=== PATIENT | male | born 1955 | race Caucasian/White ===

== ENCOUNTER → 2016-04-15 | Outpatient (CLI) | payer BC ==
[~2016-04-15] MED LIST: ATV/1 PO; DABRAFENIB PO; DENOINJ IM; IBUP-1450 PO; MEKINIST PO; METO-157 PO; MORP1TAB11 PO; ONDA8TAB6 PO; ONDA8TAB7 PO; OXYC1TAB3 PO; OXYC7.5T65 PO; POTA10CA28 PO; PROC1TAB5 PO; PROM25TA9 PO; PSYL48.59 PO; SERT100T PO; SIMV-151 PO; ZNTT/150 PO; ZOLP10TA PO
--- NOTE | 2016-04-15 16:10 | DIAGNOSTIC IMAGING REPORT ---
CT ABD/PELVIS IV AND ORAL CONT CLINICAL HISTORY: MELANOMA COMPARISON STUDY: 01/07/2016 TECHNIQUE: Following the IV administration of 94 mL of Optiray-320, CT scan of the abdomen and pelvis was performed from the lung bases to the proximal femurs. Images are reviewed in the axial, sagittal, and coronal planes. IV contrast was administered without complication. CT DOSE: FINDINGS: Lower chest: The heart is normal in size and configuration, without pericardial effusion. The lung bases and pleural spaces are clear. Liver: There are innumerable subcentimeter hepatic masses. These are stable to minimally smaller than on the preceding study. Gallbladder: Unremarkable. Spleen: The spleen is enlarged. There are 3 hypodense splenic masses, minimally smaller than on the preceding study. Pancreas: Unremarkable. Adrenal glands: Unremarkable. Kidneys: There is a 11 mm hypodensity in arising from the lower pole of the right kidney likely representing a cyst, although it does slightly exceed water attenuation. There is a 2.5 mm nonobstructing left renal calculus. There is a 1 cm mid pole left renal hypodensity. This slightly exceeds water attenuation and is therefore indeterminate. Bowel: There are no transition zones indicate bowel obstruction. No acute inflammatory changes are evident Peritoneum: There is no intraperitoneal free air or abdominal ascites. Vasculature: The abdominal aorta is normal in course and caliber. Adenopathy: None. Pelvic viscera: The bladder, and pelvic viscera are unremarkable. Skeletal structures: There are scattered osteoblastic lesions. Several these are slightly less apparent on the prior study. IMPRESSION: 1. Innumerable subcentimeter hepatic masses, stable to minimally smaller than the prior study 2. Mild splenomegaly. Splenic masses, minimally smaller than the prior study 3. Scattered osteoblastic lesions, several slightly less apparent than on the prior study 4. Nonobstructing left renal calculus 5. Small bilateral renal hypodensities, possibly representing cysts although slightly exceeding water attenuation 6. Overall the CT scan indicates slight improvement in the patient's metastatic disease Electronically signed by: David Briones M.D. 04/15/2016 4:08 PM Dictated Date/Time: 04/15/2016 3:58 PM
--- NOTE | 2016-04-15 16:13 | DIAGNOSTIC IMAGING REPORT ---
CT SCAN OF THE CHEST WITH IV CONTRAST CLINICAL HISTORY: Metastatic melanoma. COMPARISON STUDY: Chest CT scans dated 01/07/2016 and 05/29/2015. TECHNIQUE: Following the IV administration of 94 cc of Optiray 320, CT scan of the thorax was performed from the thoracic inlet to the upper abdomen. Images are reviewed in the axial, sagittal, and coronal planes. IV contrast was administered without complication. CT DOSE: 998.29 mGycm FINDINGS: Thyroid: Imaged portions of the thyroid gland are normal in size and attenuation. Thoracic aorta: The thoracic aorta is normal in caliber and demonstrates standard 3-vessel arch anatomy. No aneurysm or dissection is seen. Pulmonary vasculature: The pulmonary trunk is normal in caliber. There are no filling defects identified in the central pulmonary vessels to indicate pulmonary embolus. Note that this examination was not protocoled for evaluation of the pulmonary arteries. Heart: The heart is normal in size and configuration, and without pericardial effusion. Lungs and pleural spaces: The trachea and central airways are clear. There is no airspace consolidation or pleural effusion. There are scattered 1 tiny pulmonary nodules. The largest measures 3 mm and is seen in the right middle lobe on image #145. This is unchanged from 05/29/2015. No new pulmonary nodules are identified. Mediastinum: There is no mediastinal lymphadenopathy. Luz Maria: Clear. Axillae: There is no axillary lymphadenopathy. Postoperative changes noted in the left axilla. Upper abdomen: There are too numerous to count hepatic metastases measuring less than 2 cm. These are overall similar appearance to the 01/07/2016 examination. Low-attenuation splenic lesions are also unchanged. See report of abdominal CT performed concurrently for detailed intra-abdominal findings. Skeletal structures: Multiple lytic and blastic osseous lesions are again seen. Several of the previously identified sclerotic lesions are less apparent from previous (specifically lesions in the bodies of T5, T6, and T7). Small lesions are also seen in the manubrium of the sternum and the left first rib. No new bony lesions are clearly identified. IMPRESSION: 1. There is no evidence of progressive metastatic disease. 2. Scattered tiny pulmonary nodules measure up to 3 mm are unchanged. No new or enlarging pulmonary nodules are identified. 3. Mixed lytic and blastic bony lesions are identified. Several of the sclerotic lesions are less apparent than on the 01/07/2016 examination. This may represent positive response. 4. Multifocal hepatic metastatic disease as well as splenic metastatic disease is likely unchanged. See report of abdominal CT scan performed concurrently for detailed intra-abdominal findings. 5. There is no airspace consolidation or pleural effusion. 6. Additional findings as above. Electronically signed by: Sukhjinder Dasilva M.D. 04/15/2016 4:11 PM Dictated Date/Time: 04/15/2016 3:55 PM
== END | disposition home or self-care (01) ==
LOC: C.CTS 15:04
PROVIDERS: ATTEND Internal Medicine Hematology & Oncology
DX: C43.59 Malignant melanoma of other part of trunk (principal); R16.0 Hepatomegaly, not elsewhere classified; N20.0 Calculus of kidney

== ENCOUNTER → 2016-06-03 | Outpatient (CLI) | payer BC ==
[~2016-06-03] MED LIST changes: +OPTIRAY 320 IV PRN; -OXYC1TAB3 PO
--- NOTE | 2016-06-03 09:04 | DIAGNOSTIC IMAGING REPORT ---
CT OF THE CHEST WITH IV CONTRAST CLINICAL HISTORY: Melanoma COMPARISON STUDY: 04/15/2016 TECHNIQUE: Following the IV administration of 118 mL of Optiray-320, CT of the thorax was performed from the thoracic inlet to the lung bases. Images are reviewed in the axial, sagittal, and coronal planes. IV contrast was administered without complication. CT DOSE: 974.97 mGy.cm FINDINGS: Thyroid: Imaged portions of the thyroid gland are normal in appearance. Thoracic aorta: The thoracic aorta is normal in course and caliber, noting standard 3-vessel arch anatomy. No aneurysm or dissection is seen. Pulmonary vasculature: The pulmonary trunk is normal in caliber. There are no central filling defects identified to suggest pulmonary embolus. Note that this examination was not protocoled for the evaluation of pulmonary emboli. HEART: The heart is normal in size and configuration, without pericardial effusion. Lungs and pleural spaces: There is a new 2 mm left lower lobe pulmonary nodule as visualized on image #[id number]. There is a new 2 mm left lower lobe pulmonary nodule in image #132/351. There is a stable 2 mm right middle lobe pulmonary nodule. There is a new 3 mm right middle lobe pulmonary nodule on image #152/351. A few scattered additional tiny pulmonary nodules were present on the prior study. Mediastinum: There is no mediastinal lymphadenopathy. Luz Maria: Clear. Axilla: Clear. Upper abdomen: There are multiple hepatic and splenic nodules. Skeletal structures: There are scattered lytic and sclerotic skeletal lesions. IMPRESSION: 1. Multiple hepatic and splenic nodules, consistent with metastatic disease 2. Multiple scattered pulmonary nodules, at least 3 of which are new. The findings are suggestive of progressive pulmonary metastasis. Electronically signed by: David Briones M.D. 06/03/2016 9:03 AM Dictated Date/Time: 06/03/2016 8:51 AM
--- NOTE | 2016-06-03 09:07 | DIAGNOSTIC IMAGING REPORT ---
ABDOMEN AND PELVIS CT WITH IV AND ORAL CONTRAST CT DOSE: HISTORY: Melanoma 05/17/16 1446 CREAK 0.99 TECHNIQUE: Multiaxial CT images of the abdomen and pelvis were performed following the use of intravenous and oral contrast. COMPARISON STUDY: 04/15/2006 FINDINGS: Similar exam compared to prior. Lung bases are clear. Hypodensities involving the liver and spleen are stable. No new or progressive lesions. Kidneys show mild cortical scarring. There is a small cyst of the lower pole right kidney unchanged. Bowel pattern is nonobstructive. No significant adenopathy within the abdomen and pelvic or inguinal regions. Hepatic blastic metastatic change stable. IMPRESSION: 1. No change in the study compared to the prior exam. 2. The metastatic changes described previously are unaltered Electronically signed by: Efren Estevez M.D. 06/03/2016 9:06 AM Dictated Date/Time: 06/03/2016 8:53 AM
== END | disposition home or self-care (01) ==
LOC: C.CTS 08:23
PROVIDERS: ATTEND Internal Medicine Hematology & Oncology
DX: C43.59 Malignant melanoma of other part of trunk (principal); D73.89 Other diseases of spleen; K76.89 Other specified diseases of liver; R91.8 Other nonspecific abnormal finding of lung field

== ENCOUNTER → 2016-09-21 | Outpatient (CLI) | payer BC ==
--- NOTE | 2016-09-21 09:53 | DIAGNOSTIC IMAGING REPORT ---
CHEST CT WITH CONTRAST CT DOSE: HISTORY: Melanoma CT TECHNIQUE: Multiaxial CT images of the chest were performed following the intravenous administration of contrast. COMPARISON: 06/03/2016 FINDINGS: Small additional 2 mm nodule right lower lobe adjacent to the major fissure transaxial image 178. All additional micronodules are stable. No significant mediastinal or hilar adenopathy. Pulmonary vasculature enhances appropriately. Findings of hepatic metastatic disease again noted. IMPRESSION: 1. Single additional 2 mm nodular density right lower lobe. 2. All additional findings are unchanged from the prior exam. Electronically signed by: Efren Estevez M.D. 09/21/2016 9:52 AM Dictated Date/Time: 09/21/2016 9:42 AM
--- NOTE | 2016-09-21 09:53 | DIAGNOSTIC IMAGING REPORT ---
CT ABD/PELVIS IV AND ORAL CONT CLINICAL HISTORY: Melanoma COMPARISON STUDY: 06-18 TECHNIQUE: Following the IV administration of 92 mL of Optiray-320, CT scan of the abdomen and pelvis was performed from the lung bases to the proximal femurs. Images are reviewed in the axial, sagittal, and coronal planes. IV contrast was administered without complication. CT DOSE: 596.19 mGy.cm FINDINGS: Lower chest: The heart is normal in size and configuration, without pericardial effusion. The lung bases and pleural spaces are clear. Liver: There are innumerable subcentimeter hepatic hypodense lesions, similar to the preceding examination. Gallbladder: Unremarkable. Spleen: Splenic hypodense lesions remain unchanged. The largest measures 14 mm. Pancreas: Unremarkable. Adrenal glands: Unremarkable. Kidneys: There is stable 11 mm left renal hypodensity likely representing a cyst. There is a stable 1 cm lower pole right renal hypodensity also likely representing a cyst. There is no hydronephrosis. There is a 3 mm left renal calculus. Bowel: There are no transition zones indicate bowel obstruction. No acute inflammatory changes are visualized. Peritoneum: There is no intraperitoneal free air or abdominal ascites. Vasculature: The abdominal aorta is normal in course and caliber. Adenopathy: None. Pelvic viscera: The bladder, and pelvic viscera are unremarkable. Skeletal structures: There is an enlarging lytic destructive lesion involving the right ischium measuring 3 cm. There is a 29 mm L3 lytic lesion with associated pathologic fracture. There is an 11 mm L1 lytic focus. IMPRESSION: 1. Multiple hepatic and splenic hypodense lesions, consistent with metastatic disease and relatively similar to the preceding study 2. Progressive skeletal metastasis with a 3 cm destructive right ischial lesion, a 29 mm L3 lytic lesion with associated pathologic fracture, and an 11 mm L1 lytic focus. Electronically signed by: David Briones M.D. 09/21/2016 9:51 AM Dictated Date/Time: 09/21/2016 9:41 AM
== END | disposition home or self-care (01) ==
LOC: C.CTS 09:16
PROVIDERS: ATTEND Internal Medicine Hematology & Oncology
DX: C43.59 Malignant melanoma of other part of trunk (principal); C78.7 Secondary malignant neoplasm of liver and intrahepatic bile duct; C79.51 Secondary malignant neoplasm of bone

== ENCOUNTER → 2016-10-11 | Outpatient (CLI) | payer BC ==
[~2016-10-11] MED LIST changes: -DABRAFENIB PO; -IBUP-1450 PO; -MEKINIST PO; -ONDA8TAB7 PO; -PROC1TAB5 PO
--- NOTE | 2016-10-11 18:04 | DIAGNOSTIC IMAGING REPORT ---
CT CERVICAL SPINE WITH CT DOSE: 487.28 mGycm CLINICAL HISTORY: MELANOMA TECHNIQUE: The patient was scanned in a dynamic helical fashion following administration of 93 cc of Optiray 320. COMPARISON STUDY: None. FINDINGS: There is mild mucosal thickening within the sphenoid sinus. No acute fractures or subluxations are visualized within the cervical spine. There is no evidence of pathologic adenopathy within the visualized portions of the soft tissue neck. No pathologic neck masses are visualized. The lung apices are unremarkable in appearance. There are multilevel degenerative changes most pronounced at the C56 and C6-7 levels. There are ill-defined lytic foci involving the right C7 lateral mass, and lamina. The findings are viewed as suspicious for metastatic disease. There is a 12 mm lytic focus involving the C2 spinous process, consistent with metastatic disease. There is minimal epidural extension. Evaluation of the spinal cord and canal would be better assessed with an MRI study. IMPRESSION: 1. Lytic foci involving the right C7 lateral mass and lamina consistent with metastatic disease 2. 12 lytic lytic focus involving the C2 spinous process with minimal epidural extension. The findings are consistent with a metastatic deposit. Electronically signed by: David Briones M.D. 10/11/2016 6:03 PM Dictated Date/Time: 10/11/2016 5:51 PM
== END | disposition home or self-care (01) ==
LOC: C.MRI 17:23
PROVIDERS: ATTEND Physician Assistant Medical
DX: M54.2 Cervicalgia (principal); C43.59 Malignant melanoma of other part of trunk

== ENCOUNTER 2016-10-31 13:12 | Emergency (ER) | payer BC ==
[~2016-10-31] VITALS: Ht 180.3 cm; Wt 77.5 kg
[~2016-10-31 13:12] MED LIST changes: -ATV/1 PO; -OPTIRAY 320 IV PRN; -PROM25TA9 PO
[2016-10-31 13:22] VITALS: TEMP 36.8; Ht 180.3 cm; Wt 77.5 kg
[2016-10-31] MEDS ORDERED: SODIUM CHLORIDE 0.9% 1000ML 2,000 ML IV STA (13:26)
[2016-10-31] MEDS ORDERED: SODIUM CHLORIDE 0.9% 1000ML 1,000 ML IV STA (13:26)
[2016-10-31 13:37] VITALS: O2SAT 99
[2016-10-31] MEDS ORDERED: PROMETHAZINE HCL INJ 25 MG in SODIUM CHLORIDE 0.9% 50ML 50 ML IV STA (13:40)
[2016-10-31 13:57] LABS: URINE APPEARANCE CLEAR (CLEAR); URINE BILIRUBIN NEG (NEG); URINE COLOR YELLOW; URINE NITRITE NEG (NEG); URINE PH 7.5 (4.5-7.5); URINE SPECIFIC GRAVITY 1.018 (1.000-1.030); UROBILINOGEN NEG (NEG); ZZUR CULT IF INDIC CLEAN CATCH NO
[2016-10-31 14:00] LABS: MANUAL MICROSCOPIC REQUIRED? NO; REVIEW REQ? NO
[2016-10-31 14:20] LABS: BASO % 0.4 %; BASO ABS # 0.02 K/uL (0-0.2); COMPLETE YES; HEMATOCRIT 41.4 % (42-52); IG% 0.4 %; LYMPH % 8.5 %; LYMPH ABS # 0.48 K/uL (1.2-3.4); MEAN CORPUSCULAR HEMOGLOBIN 28.2 pg (25-34); MEAN CORPUSCULAR HGB CONC 35.7 g/dl (32-36); MEAN PLATELET VOLUME 8.4 fL (7.4-10.4); MONO % 7.6 %; NEUT % 75.1 %; PLATELET COUNT 219 K/uL (130-400); RED BLOOD COUNT 5.24 M/uL (4.7-6.1); WHITE BLOOD COUNT 5.63 K/uL (4.8-10.8)
--- NOTE | 2016-10-31 14:28 | DIAGNOSTIC IMAGING REPORT ---
CHEST ONE VIEW PORTABLE CLINICAL HISTORY: productive cough nausea COMPARISON STUDY: 10/31/2015 FINDINGS: The bones soft tissues and hemidiaphragms are normal. The cardiomediastinal silhouette is normal. The lungs are clear. The pulmonary vasculature is normal. IMPRESSION: Negative chest. The above report was generated using voice recognition software. It may contain grammatical, syntax or spelling errors. Electronically signed by: Efren Estevez M.D. 10/31/2016 2:26 PM Dictated Date/Time: 10/31/2016 2:26 PM
[2016-10-31 14:39] LABS: CALCIUM 8.7 mg/dl (8.5-10.1); CREATININE 0.92 mg/dl (0.60-1.40); POTASSIUM 3.7 mmol/L (3.5-5.1)
[2016-10-31] MEDS ORDERED: LORAZEPAM 2 MG/ML 1 ML VIAL IV STA (15:17)
[2016-10-31 17:09] VITALS: BP 114/74; PULSE 74; O2SAT 94
[2016-10-31] MEDS ORDERED: PROM25TA9 PO (17:23)
[2016-10-31] MEDS ORDERED: ATV/1 PO (17:23)
[2016-10-31] MEDS ORDERED: ATIVAN 1MG HOMEPACK PO ONE (17:30)
[2016-10-31] MEDS ORDERED: PHENERGAN 25MG HOMEPACK PO ONE (17:30)
--- NOTE | 2016-10-31 20:38 | EMERGENCY ROOM VISIT NOTE ---
History Report prepared by Malickibnoel: Bridgett Pham Under the Supervision of: Dr. Ulices Chow M.D. First contact with patient: 13:26 Chief Complaint: DEHYDRATION Stated Complaint: DEHYDRATED FROM CHEMO/RAD, VOMITING, NAUSEA Nursing Triage Summary: Pt c/o throwing up, nauseous since radiation treatment started a few weeks ago (group of 10 finished Tuesday). Pt states he coughed up blood. Melanoma History of Present Illness The patient is a 61 year old male who presents to the Emergency Room with complaints of worsening dehydration for the past 5 days. He finished 10 doses of radiation and chemotherapy last week for a history of metastatic melanoma. The patient also started a new chemo medication and received an X-Geva injection last week. Since then, he has been nauseous and vomiting every day. He has not been able to control his nausea with Compazine. The patient states he experienced one episode of hemoptysis this past week as well as a sore throat and one episode of diarrhea. He feels minimally lightheaded here in the ED. His states she called his radiation oncologist's office, Dr. Villa with [facility], this morning and was referred to the ED for further evaluation and management. The patient denies LOC, headache, fevers, chills, diaphoresis, visual changes, neck pain, chest pain, breathing difficulties, abdominal pain, back pain, melena, hematochezia, urinary symptoms, numbness, weakness, lymphadenopathy, rash, or other complaints. 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 A total of ten systems were reviewed and were otherwise negative. Past Medical & Surgical Medical Problems: (1) Melanoma Social History Smoking Status: Never Smoker Smokeless Tobacco Use: No Alcohol Use: occasionally Drug Use: none Marital Status: Housing Status: lives with family Occupation Status: retired Current/Historical Medications Scheduled Denosumab (Xgeva), 1 APPLN IM [id number] Metoclopramide (Reglan), 10 MG PO ACHS Potassium Chloride (Micro-K Ext Rel), 10 MEQ PO DAILY Psyllium (Metamucil), 1 TSP PO DAILY Ranitidine (Zantac), 1 TAB PO BID Sertraline Hcl (Zoloft), 150 MG PO DAILY Simvastatin (Simvastatin), 1 TAB PO DAILY Scheduled PRN Lorazepam (Ativan), 1 MG PO Q6H PRN for Nausea or Vomiting Morphine Sulfate (Morphine Sulfate Er), 1 TAB PO BID PRN for Pain Ondansetron Hcl (Zofran), 8 MG PO Q6 PRN for Nausea Oxycodone/Acetaminophen 7.5MG/325MG (Percocet 7.5MG/325MG), 1 TAB PO Q6 PRN for Pain Promethazine Hcl (Phenergan), 25 MG PO Q6H PRN for Nausea Zolpidem Tartrate (Ambien), 10 MG PO HS PRN for Sleep Allergies Coded Allergies: Penicillins (Verified Allergy, Intermediate, MOUTH SORES, 10/31/15) Physical Exam Vital Signs Date Time Temp Pulse Resp B/P (MAP) Pulse Ox O2 Delivery O2 Flow Rate FiO2 10/31/16 17:09 74 18 114/74 94 Room Air 10/31/16 14:27 74 24 99 10/31/16 14:12 75 20 99 10/31/16 14:10 118/84 10/31/16 13:57 67 18 100 10/31/16 13:42 70 14 100 10/31/16 13:38 70 10/31/16 13:37 99 Room Air 10/31/16 13:36 124/87 10/31/16 13:22 36.8 94 18 116/82 99 Room Air Physical Exam GENERAL: Patient is awake, alert, tired-appearing, in no distress HENT: Normocephalic, atraumatic. Oropharynx unremarkable. Dry mucous membranes. EYES: Normal conjunctiva. Sclera non-icteric. NECK: Supple. No nuchal rigidity. FROM. No JVD. RESPIRATORY: Clear to auscultation. CARDIAC: Regular rate, normal rhythm. Extremities warm and well perfused. Pulses equal. ABDOMEN: Soft, non-distended. No tenderness to palpation. No rebound or guarding. No masses. RECTAL: Deferred. MUSCULOSKELETAL: Chest examination reveals no tenderness. The back is symmetrical on inspection without obvious abnormality. There is no CVA tenderness to palpation. No joint edema. LOWER EXTREMITIES: Calves are equal size bilaterally and non-tender. No edema. No discoloration. NEURO: Normal sensorium. No sensory or motor deficits noted. SKIN: No rash or jaundice noted. Medical Decision & Procedures ER Provider Diagnostic Interpretation: Radiology results as stated below per my review and radiologist interpretation: CHEST ONE VIEW PORTABLE CLINICAL HISTORY: productive cough nausea COMPARISON STUDY: 10/31/2015 FINDINGS: The bones soft tissues and hemidiaphragms are normal. The cardiomediastinal silhouette is normal. The lungs are clear. The pulmonary vasculature is normal. IMPRESSION: Negative chest. The above report was generated using voice recognition software. It may contain grammatical, syntax or spelling errors. Electronically signed by: Efren Estevez M.D. 10/31/2016 2:26 PM Laboratory Results 10/31/16 14:05 Red Blood Count 5.24, Mean Corpuscular Volume 79.0, Mean Corpuscular Hemoglobin 28.2, Mean Corpuscular Hemoglobin Concent 35.7, Mean Platelet Volume 8.4, Neutrophils (%) (Auto) 75.1, Lymphocytes (%) (Auto) 8.5, Monocytes (%) (Auto) 7.6, Eosinophils (%) (Auto) 8.0, Basophils (%) (Auto) 0.4, Neutrophils # (Auto) 4.23, Lymphocytes # (Auto) 0.48, Monocytes # (Auto) 0.43, Eosinophils # (Auto) 0.45, Basophils # (Auto) 0.02 10/31/16 14:05 Test 10/31/16 13:40 10/31/16 14:05 Urine Color YELLOW Urine Appearance CLEAR (CLEAR) Urine pH 7.5 (4.5-7.5) Urine Specific [place] 1.018 (1.000-1.030) Urine Protein NEG (NEG) Urine Glucose (UA) NEG (NEG) Urine Ketones NEG (NEG) Urine Occult Blood NEG (NEG) Urine Nitrite NEG (NEG) Urine Bilirubin NEG (NEG) Urine Urobilinogen NEG (NEG) Urine Leukocyte Esterase NEG (NEG) White Blood Count 5.63 K/uL (4.8-10.8) Red Blood Count 5.24 M/uL (4.7-6.1) Hemoglobin 14.8 g/dL (14.0-18.0) Hematocrit 41.4 % (42-52) Mean Corpuscular Volume 79.0 fL (80-100) Mean Corpuscular Hemoglobin 28.2 pg (25-34) Mean Corpuscular Hemoglobin Concent 35.7 g/dl (32-36) Platelet Count 219 K/uL (130-400) Mean Platelet Volume 8.4 fL (7.4-10.4) Neutrophils (%) (Auto) 75.1 % Lymphocytes (%) (Auto) 8.5 % Monocytes (%) (Auto) 7.6 % Eosinophils (%) (Auto) 8.0 % Basophils (%) (Auto) 0.4 % Neutrophils # (Auto) 4.23 K/uL (1.4-6.5) Lymphocytes # (Auto) 0.48 K/uL (1.2-3.4) Monocytes # (Auto) 0.43 K/uL (0.11-0.59) Eosinophils # (Auto) 0.45 K/uL (0-0.5) Basophils # (Auto) 0.02 K/uL (0-0.2) RDW Standard Deviation 40.2 fL (36.4-46.3) RDW Coefficient of Variation 14.1 % (11.5-14.5) Immature Granulocyte % (Auto) 0.4 % Immature Granulocyte # (Auto) 0.02 K/uL (0.00-0.02) Anion Gap 8.0 mmol/L (3-11) Est Creatinine Clear Calc Drug Dose 92.0 ml/min Estimated GFR () 105.1 Estimated GFR (Non- 90.7 BUN/Creatinine Ratio 10.0 (10-20) Calcium Level 8.7 mg/dl (8.5-10.1) Total Bilirubin 0.7 mg/dl (0.2-1) Direct Bilirubin 0.2 mg/dl (0-0.2) Aspartate Amino Transf (AST/SGOT) 8 U/L (15-37) Alanine Aminotransferase (ALT/SGPT) 20 U/L (12-78) Alkaline Phosphatase 82 U/L (45-117) Total Protein 6.9 gm/dl (6.4-8.2) Albumin 3.9 gm/dl (3.4-5.0) Lipase 109 U/L (73-393) Laboratory results reviewed by me Medications Administered Medications (Trade) Dose Ordered Sig/Patrick Route Start Time Stop Time Status Last Admin Dose Admin Sodium Chloride 2,000 ml @ 999 mls/hr Q2H1M STAT IV 10/31/16 13:26 10/31/16 15:26 DC 10/31/16 14:16 999 MLS/HR Promethazine HCl 25 mg/Sodium Chloride 51 ml @ 204 mls/hr NOW STAT IV 10/31/16 13:40 10/31/16 13:54 DC 10/31/16 14:16 204 MLS/HR Lorazepam (Ativan Inj) 1 mg NOW STAT IV 10/31/16 15:17 10/31/16 15:18 DC 10/31/16 15:22 1 MG Lorazepam (Ativan 1MG Home Pack) 1 homepack UD ONCE PO 10/31/16 17:30 10/31/16 17:31 DC 10/31/16 17:24 1 HOMEPACK Promethazine HCl (Phenergan 25MG Home Pack) 1 homepack UD ONCE PO 10/31/16 17:30 10/31/16 17:31 DC 10/31/16 17:24 1 HOMEPACK ED Course 1337: The patient was evaluated in room C9. A complete history and physical exam was performed. 1326: NSS 2000 ml @ 999 mls/hr IV, NSS 1000 ml @ 125 mls/hr IV. 1340: Promethazine HCl 25 mg/NSS 51 ml @ 204 mls/hr IV. 1450: I reevaluated the patient. He is still nauseous after receiving the Phenergan. I will try administering Ativan. 1517: Ativan 1 mg IV. 1539: I reevaluated the patient. He is feeling a little better. 1608: I reevaluated the patient. He is resting comfortably. 1715: I reevaluated the patient. He is feeling much better with the combination of Phenergan/Ativan. I discussed his discharge instructions and he verbalized complete understanding and agreement. 1730: Phenergan 25 mg 1 homepack PO, Lorazepam 1 mg 1 homepack PO. Medical Decision Triage Nursing notes reviewed. The patient's presentation and history were concerning for nausea and chemotherapy. Etiologies such as medication side effect, effects of chemo/radiation, gastroenteritis, food borne illness, infections, obstruction, pancreatitis, appendicitis, diverticulitis, inflammatory bowel disease, GI bleed, biliary pathology, toxicologic as well as others were entertained. THe patient was hydrated. Labs were normal. He had no relief from phenergan. IV ativan was tried. On reassessment the patient was feeling better. He felt that the combination of the Phenergan and Ativan worked relatively well. After hydration and oral challenge I reviewed the issue. He will need close follow- up with oncology. The patient will be given a prescription for Phenergan and Ativan. He'll rest and hydrate. Driving instructions and working restrictions were discussed given the Phenergan and Ativan. I gave my usual and customary discussion regarding this issue. By the evaluation outlined above other emergent etiologies such as those listed in the differential, as well as others, were deemed relatively unlikely. The patient was educated about the findings as listed above. All questions were answered and the patient was pleased with the treatment. Return instructions were outlined and the patient was discharged in stable condition. The patient was referred to oncology for follow-up for a recheck of the current condition. Medication Reconcilliation Current Medication List: was personally reviewed by me Blood Pressure Screening Patient's blood pressure: Normal blood pressure Blood pressure disposition: Did not require urgent referral Impression Primary Impression: Nausea Additional Impression: Dehydration Scribe Attestation The scribe's documentation has been prepared under my direction and personally reviewed by me in its entirety. I confirm that the note above accurately reflects all work, treatment, procedures, and medical decision making performed by me. Departure Information Dispostion Home / Self-Care Prescriptions Promethazine Hcl (Phenergan) 25 Mg Tab 25 MG PO Q6H Y for Nausea, #10 TAB Prov: Ulices Chow MD 10/31/16 Lorazepam (ATIVAN) 1 Mg Tab 1 MG PO Q6H Y for Nausea or Vomiting, #15 TAB Prov: Ulices Chow MD 10/31/16 Referrals No Doctor, Assigned (PCP) Patient Instructions My [facility] Additional Instructions VOMITING INSTRUCTIONS: DO NOT drive, drink alcohol, operate machinery, or perform dangerous activities today. You were given medications in the ER that can affect your ability to safely function or operate a vehicle. Phenergan(promethazine) tablets 25mg: Take one every six hours as needed for nausea. Avoid alcohol, operating machinery or dangerous equipment, working on ladders or roofs, DRIVING, or situations where being under the influence may be dangerous. Ativan 1mg: Take one every 6 hours as needed for severe nausea. Do not drive if taking. May cause drowsiness. Do not take if you are at work or doing any activity where being under the influence may be dangerous. Continue your Zofran(odansetron): Take one and allow it to dissolve in your mouth every four to six hours as needed for nausea or vomiting. Acetaminophen(Tylenol) may be used for fever or pain. Use 1000mg every six hours as needed. Avoid using more than 4000mg in a 24 hour period. Rest and drink plenty of fluids as tolerated. Slow sips of water or sports drinks are recommended instead of large amounts all at once. Continue current medications. Once your stomach is settled start with a clear liquid diet (jello, soup broth, etc.) and then advance as tolerated. You should avoid full, heavy meals for about 24 hrs from the time your symptoms resolved. Return to the ER for persistent vomiting, fevers, abdominal pain, chest pains, difficulty breathing, black or bloody stools, worsening of your condition, or as needed. Follow up with your oncologist tomorrow for a recheck of your current condition Problem Qualifiers
== END 2016-10-31 17:35 | disposition home or self-care (01) ==
LOC: C.EDB 13:13 → C.EDC 17:35
DX: R11.0 Nausea (principal); E86.0 Dehydration; C43.9 Malignant melanoma of skin, unspecified

== ENCOUNTER → 2016-12-01 | Outpatient (CLI) | payer BC ==
[~2016-12-01] MED LIST changes: +PROM25TA9 PO
[2016-12-01 12:40] VITALS: BP 115/78; PULSE 92; TEMP 37; O2SAT 98
--- NOTE | 2016-12-01 13:43 | Radiation Oncology Follow-Up ---
Radiation Oncology Follow-Up Date of Visit Dec 01, 2016. Reason For Visit One-month follow-up Radiation Completion Date 10/27/16 Diagnosis (1) Melanoma Status: Chronic Onset Date: ~ 09/2014 Stage: IV Permanent Comment: DIAGNOSIS: Skin, back, melanoma, T2N3M0, stage IIIC with left axillary nicole involvement Multiple regimens of chemotherapy have been tried Now with progression with metastasis to the cervical spine, lumbar spine, and the right ischial tuberosity Status post completion of radiation therapy to the cervical spine, lumbar spine , and right pelvis completed 10/27/2016. He received 3000 cGy to each area. Last Edited By: Leda Varghese on Nov 15, 2016 15:31 History of Present Illness Mr. Sweet is a 61-year-old gentleman who noticed a change in a mole on his back that is been there for the last 10 years. He was referred by his primary care physician to Dr. Patel who performed a excisional biopsy on 09/06/2014 and the pathology was eventually reviewed at the [facility] and the final report came back as malignant melanoma, superficial spreading type, Hernandez's level IV, breast low depth 1.7 mm in the vertical growth phase. Dr. Patel took the patient to the OR on 11/15/2014 and performed a wide local excision and sentinel lymph node biopsy. Pathology revealed no residual melanoma at the primary site. The right sentinel lymph nodes were all negative, 0/3. 1 out of 2 sentinel lymph nodes in the left axilla was positive for malignant melanoma. The specimen was sent for analysis in came back positive for BRAF mutation. The patient had a PET/CT scan completed on 11/25/2014 which showed no evidence of metastatic disease and only some focused FDG uptake at the postsurgical site. Dr. Patel brought the patient back to the OR on 01/17/2015 for a left completion axillary lymph node dissection which revealed metastatic melanoma in 5/[address] Patel noted that during his operation there was diffuse in-transit metastases between lymph nodes which may have been confused extranodal extension on pathologic evaluation. The patient was referred to Dr. Villa who was started the patient on interferon therapy. We are now seeing the patient in consultation regarding the role of adjuvant radiation therapy. The patient went on to have multiple regimens of chemotherapy. He was on interferon which cause neutropenia. He was then onYervoy he was given 4 cycles of treatment. He had progression and was then changed to Opdiovo. This unfortunately caused renal failure. He was hospitalized. He had full recovery with normal renal function following that hospitalization. He was then on a BRAF inhibitor and MEK Inhibitor. This was poorly tolerated and cause joint pain and fever. He was then on the BRAF inhibitor alone. This caused a uveitis. This medication was then stopped. He has seen for some new lesions noted of the axilla. He had restaging studies . IMPRESSION: 1. Multiple hepatic and splenic hypodense lesions, consistent with metastatic disease and relatively similar to the preceding study 2. Progressive skeletal metastasis with a 3 cm destructive right ischial lesion, a 29 mm L3 lytic lesion with associated pathologic fracture, and an 11 mm L1 lytic focus. He rates his pain at a level VII. He is taking oxycodone and morphine. He takes neither on a regular basis. He is also having pain on the left mid neck area. An MRI was ordered of the cervical spine this showed lytic lesions. Decision was to treat the cervical spine, lumbar spine, And right pelvis. He received 3000 cGy to each area. This was completed 2016. Interim History He has been doing well over this past month. One week following treatment he was able to discontinue the MS Contin. He now describes minimal discomfort. He gives no a level II. This is is and each of the areas that were treated. He did not develop any skin irritation. He does have some issues with diarrhea. This usually occurs once per day. He also started Keytruda and feels that this may be related to the medication. He had a sore throat at the end of treatment. This also resolved and has not recurred. He had a small amount of trace hemoptysis when his throat was sore and this resolved. Allergies Coded Allergies: Penicillins (Verified Allergy, Intermediate, MOUTH SORES, 10/31/15) Home Medications Scheduled Denosumab (Xgeva), 1 APPLN IM [id number] Metoclopramide (Reglan), 10 MG PO ACHS Potassium Chloride (Micro-K Ext Rel), 10 MEQ PO DAILY Psyllium (Metamucil), 1 TSP PO DAILY Ranitidine (Zantac), 1 TAB PO BID Sertraline Hcl (Zoloft), 150 MG PO DAILY Simvastatin (Simvastatin), 1 TAB PO DAILY Scheduled PRN Morphine Sulfate (Morphine Sulfate Er), 1 TAB PO BID PRN for Pain Ondansetron Hcl (Zofran), 8 MG PO Q6 PRN for Nausea Oxycodone/Acetaminophen 7.5MG/325MG (Percocet 7.5MG/325MG), 1 TAB PO Q6 PRN for Pain Promethazine Hcl (Phenergan), 25 MG PO Q6H PRN for Nausea Zolpidem Tartrate (Ambien), 10 MG PO HS PRN for Sleep Review of Systems Gastrointestinal: Symptoms: Nausea, Vomiting GI Comments: last vomiting two days ago Oral: Symptoms: No Problems Respiratory: Symptoms: WNL, SOB At Rest Urinary: Symptoms: WNL Skin: Symptoms: No Problems Physical Exam Vital Signs Date Time Temp Pulse Resp B/P (MAP) Pulse Ox O2 Delivery O2 Flow Rate FiO2 12/01/16 12:40 37.0 92 18 115/78 98 Pain: Pain Duration: since August Patient Pain Scale: 0 - 10 Initial Pain Intensity: 2.0 Pain Description: Tightness Fatigue: None General Appearance: no apparent distress Eyes: normal inspection, EOMI ENT: normal ENT inspection, hearing grossly normal Neck: no adenopathy, thyroid normal Respiratory/Chest: lungs clear, no respiratory distress, no accessory muscle use Cardiovascular: regular rate, rhythm, no gallop, no murmur Abdomen: non tender, soft, no organomegaly Extremities: no pedal edema, + pertinent finding (good strength and coordination of upper and lower extremities.) Neurologic/Psychiatric: no motor/sensory deficits, alert, normal mood/affect Skin: warm/dry Lymphatic: no adenopathy Additional Exam Notes: There is no tenderness of the paraspinous musculature or spinal processes of the cervical spine or lumbar spine. Laboratory Studies Test 10/14/16 09:25 10/22/16 18:34 10/31/16 14:05 11/04/16 08:52 Urine WBC (Auto) 1-5 /hpf (0-5) Urine RBC (Auto) 0-4 /hpf (0-4) Urine Hyaline Casts (Auto) 1-5 /lpf (0-5) Urine Epithelial Cells (Auto) 0-5 /lpf (0-5) Urine Bacteria (Auto) NEG (NEG) Magnesium Level 2.3 mg/dl (1.8-2.4) 2.3 mg/dl (1.8-2.4) Direct Bilirubin 0.2 mg/dl (0-0.2) Lipase 109 U/L (73-393) White Blood Count 4.34 K/uL (4.8-10.8) Red Blood Count 5.02 M/uL (4.7-6.1) Hemoglobin 14.3 g/dL (14.0-18.0) Hematocrit 40.8 % (42-52) Mean Corpuscular Volume 81.3 fL (80-100) Mean Corpuscular Hemoglobin 28.5 pg (25-34) Mean Corpuscular Hemoglobin Concent 35.0 g/dl (32-36) Platelet Count 169 K/uL (130-400) Mean Platelet Volume 8.4 fL (7.4-10.4) Neutrophils (%) (Auto) 69.9 % Lymphocytes (%) (Auto) 10.8 % Monocytes (%) (Auto) 7.1 % Eosinophils (%) (Auto) 10.8 % Basophils (%) (Auto) 1.2 % Neutrophils # (Auto) 3.03 K/uL (1.4-6.5) Lymphocytes # (Auto) 0.47 K/uL (1.2-3.4) Monocytes # (Auto) 0.31 K/uL (0.11-0.59) Eosinophils # (Auto) 0.47 K/uL (0-0.5) Basophils # (Auto) 0.05 K/uL (0-0.2) RDW Standard Deviation 42.3 fL (36.4-46.3) RDW Coefficient of Variation 14.4 % (11.5-14.5) Immature Granulocyte % (Auto) 0.2 % Immature Granulocyte # (Auto) 0.01 K/uL (0.00-0.02) Urine Color YELLOW Urine Appearance CLEAR (CLEAR) Urine pH 6.5 (4.5-7.5) Urine Specific [place] 1.011 (1.000-1.030) Urine Protein NEG (NEG) Urine Glucose (UA) NEG (NEG) Urine Ketones NEG (NEG) Urine Occult Blood NEG (NEG) Urine Nitrite NEG (NEG) Urine Bilirubin NEG (NEG) Urine Urobilinogen NEG (NEG) Urine Leukocyte Esterase NEG (NEG) Sodium Level 141 mmol/L (136-145) Potassium Level 3.6 mmol/L (3.5-5.1) Chloride Level 108 mmol/L (98-107) Carbon Dioxide Level 28 mmol/L (21-32) Anion Gap 5.0 mmol/L (3-11) Blood Urea Nitrogen 11 mg/dl (7-18) Creatinine 1.00 mg/dl (0.60-1.40) Est Creatinine Clear Calc Drug Dose 85.8 ml/min Estimated GFR () 95.1 Estimated GFR (Non- 82.0 BUN/Creatinine Ratio 11.3 (10-20) Random Glucose 69 mg/dl (70-99) Calcium Level 8.8 mg/dl (8.5-10.1) Total Bilirubin 0.4 mg/dl (0.2-1) Aspartate Amino Transferase (AST) 12 U/L (15-37) Alanine Aminotransferase (ALT) 25 U/L (12-78) Alkaline Phosphatase 79 U/L (45-117) Lactate Dehydrogenase 137 U/L (87-241) Total Protein 7.0 gm/dl (6.4-8.2) Albumin 3.7 gm/dl (3.4-5.0) Globulin 3.3 gm/dl (2.5-4.0) Albumin/Globulin Ratio 1.1 (0.9-2) Thyroid Stimulating Hormone (TSH) 1.440 uIu/ml (0.300-4.500) Test 11/25/16 08:06 White Blood Count 3.82 K/uL (4.8-10.8) Red Blood Count 4.99 M/uL (4.7-6.1) Hemoglobin 14.8 g/dL (14.0-18.0) Hematocrit 40.9 % (42-52) Mean Corpuscular Volume 82.0 fL (80-100) Mean Corpuscular Hemoglobin 29.7 pg (25-34) Mean Corpuscular Hemoglobin Concent 36.2 g/dl (32-36) Platelet Count 194 K/uL (130-400) Mean Platelet Volume 8.3 fL (7.4-10.4) Neutrophils (%) (Auto) 68.1 % Lymphocytes (%) (Auto) 12.3 % Monocytes (%) (Auto) 4.7 % Eosinophils (%) (Auto) 13.1 % Basophils (%) (Auto) 1.0 % Neutrophils # (Auto) 2.60 K/uL (1.4-6.5) Lymphocytes # (Auto) 0.47 K/uL (1.2-3.4) Monocytes # (Auto) 0.18 K/uL (0.11-0.59) Eosinophils # (Auto) 0.50 K/uL (0-0.5) Basophils # (Auto) 0.04 K/uL (0-0.2) RDW Standard Deviation 44.5 fL (36.4-46.3) RDW Coefficient of Variation 14.9 % (11.5-14.5) Immature Granulocyte % (Auto) 0.8 % Immature Granulocyte # (Auto) 0.03 K/uL (0.00-0.02) Urine Color YELLOW Urine Appearance CLEAR (CLEAR) Urine pH 5.0 (4.5-7.5) Urine Specific [place] 1.022 (1.000-1.030) Urine Protein NEG (NEG) Urine Glucose (UA) NEG (NEG) Urine Ketones NEG (NEG) Urine Occult Blood 1+ (NEG) Urine Nitrite NEG (NEG) Urine Bilirubin NEG (NEG) Urine Urobilinogen NEG (NEG) Urine Leukocyte Esterase NEG (NEG) Urine WBC (Auto) 1-5 /hpf (0-5) Urine RBC (Auto) 0-4 /hpf (0-4) Urine Hyaline Casts (Auto) 0 /lpf (0-5) Urine Epithelial Cells (Auto) 0-5 /lpf (0-5) Urine Bacteria (Auto) NEG (NEG) Sodium Level 142 mmol/L (136-145) Potassium Level 4.1 mmol/L (3.5-5.1) Chloride Level 110 mmol/L (98-107) Carbon Dioxide Level 26 mmol/L (21-32) Anion Gap 6.0 mmol/L (3-11) Blood Urea Nitrogen 15 mg/dl (7-18) Creatinine 1.00 mg/dl (0.60-1.40) Est Creatinine Clear Calc Drug Dose 85.8 ml/min Estimated GFR () 95.1 Estimated GFR (Non- 82.0 BUN/Creatinine Ratio 14.8 (10-20) Random Glucose 108 mg/dl (70-99) Calcium Level 8.9 mg/dl (8.5-10.1) Total Bilirubin 0.6 mg/dl (0.2-1) Aspartate Amino Transferase (AST) 20 U/L (15-37) Alanine Aminotransferase (ALT) 36 U/L (12-78) Alkaline Phosphatase 100 U/L (45-117) Lactate Dehydrogenase 150 U/L (87-241) Total Protein 7.6 gm/dl (6.4-8.2) Albumin 4.0 gm/dl (3.4-5.0) Globulin 3.6 gm/dl (2.5-4.0) Albumin/Globulin Ratio 1.1 (0.9-2) Thyroid Stimulating Hormone (TSH) 1.390 uIu/ml (0.300-4.500) Assessment & Plan Plan: He was seen today by Dr. Walton. Continue regular follow-up with Dr. Villa. He is scheduled to see Dr. Cleaning 01/17/2017 at [facility]. He'll have recheck scanning prior to that visit here in [place]. These arrangements are being made through Dr. Villa's office. Does not require any further pain medication. He continues on Keytuda. He is going to take Metamucil to help with the loose bowel movements. A follow-up appointment with our office was not given. He may call if he has any questions or concerns. Assessment & Plan (Attending) ADDENDUM: I agree with note created by Leda Varghese PA-C. I reviewed the patient's chart and information with her. I have examined and evaluated the patient. I reviewed relevant clinical information and answered the patient's and /or family's questions. LAW ENFORCEMENT INSTRUCTOR Total Time In Follow-Up I spent 20 minutes speaking to the patient and performing examination. I spent 15 minutes reviewing information and completeness note. AK Total Time (Attending) In Follow-Up I spent 15 minutes examining and counseling the patient. LAW ENFORCEMENT INSTRUCTOR Copy To Fish Villa D.O.; Ortega Madera D.O.
== END | disposition home or self-care (01) ==
LOC: C.ONC 12:34
PROVIDERS: ATTEND Physician Assistant Medical
DX: Z08 Encounter for follow-up examination after completed treatment for malignant neoplasm (principal); Z92.3 Personal history of irradiation; Z85.820 Personal history of malignant melanoma of skin

== ENCOUNTER → 2016-12-28 | Outpatient (CLI) | payer BC ==
[~2016-12-28] MED LIST changes: +OPTIRAY 320 IV PRN
--- NOTE | 2016-12-28 14:26 | DIAGNOSTIC IMAGING REPORT ---
CHEST CT WITH CONTRAST CT DOSE: 1132.99 mGycm HISTORY: Follow-up study in a patient with history of melanoma. MELANOMA TECHNIQUE: Multiaxial CT images of the chest were performed following the intravenous administration of contrast. A dose lowering technique was utilized adhering to the principles of ALARA. COMPARISON: CT chest 09/21/2016. FINDINGS: No dominant thyroid nodule identified. Postsurgical changes in the left axillary seen compatible with prior axillary node dissection. No new adenopathy identified. The heart is normal in size with a trace pericardial effusion. There is minimal mixed plaquing of the thoracic aorta without dissection. No pneumothorax, pleural effusion or focal airspace consolidation. Scattered multilobar distribution of bilateral pulmonary nodules are again seen, the largest of which measures 4 mm within the right lower lobe on image 155, new from prior study. The largest nodule on the left measures 5 mm on image 150, also new from prior exam. Multiple additional new pulmonary nodules are seen bilaterally, for example 3 mm nodule in image 163 within the right lower lobe, 3 mm nodule in the right lower lobe on image 165 multiple nodules in the superior segment left lower lobe measuring up to 3 mm and multiple right upper lobe pulmonary nodules. Central airways are patent. There is oral contrast within a distended gastric lumen. The spleen is enlarged. There is an unchanged 1.2 cm low attenuating lesion of the spleen. Multiple low attenuating lesions throughout the liver are again seen as well compatible with metastasis. Lytic lesion within the right lateral aspect of the T11 vertebral body with destructive margins is increase in size, 1.7 x 1.2 cm previously measuring 1.1 x 0.9 cm. Probable Schmorl's node at T8 is unchanged. There is a lytic lesion along left aspect of T3, 1.0 cm, previously 0.8 cm. No additional new bony lesions are identified. IMPRESSION: 1. Multiple new and enlarging pulmonology nodules throughout the bilateral lungs measuring up to 5 mm are compatible with progressive metastasis. 2. Enlargement of the lytic bony metastasis within the T3 and T11 vertebral bodies. 3. Multiple hepatic metastasis and splenic hypodense lesions are again seen, better assessed on CT abdomen and pelvis of same day. Electronically signed by: Idris Victor M.D. 12/28/2016 2:25 PM Dictated Date/Time: 12/28/2016 2:13 PM
--- NOTE | 2016-12-28 14:27 | DIAGNOSTIC IMAGING REPORT ---
ABD/PELVIS IV AND ORAL CONT CT DOSE: HISTORY: Melanoma. MELANOMA TECHNIQUE: Multiaxial CT images of the abdomen and pelvis were performed following the use of intravenous and oral contrast. A dose lowering technique was utilized adhering to the principles of ALARA. COMPARISON STUDY: 09/21/2016 FINDINGS: Lung bases are clear. Diffuse metastatic disease throughout the liver as well as spleen are considered stable. No new or interval findings are present. Pancreas is unremarkable. Bowel pattern is nonobstructive. There is no significant abdominal pelvic or inguinal adenopathy. The bony metastatic disease involving the right ischium is essentially unchanged. Maximum dimension remains approximately 3 cm. Small lytic focus lateral aspect left femoral head is unchanged. A small lytic focus inferior endplate L4 is similar. The lytic focus superior endplate L3 with an associated cortical fracture is essentially unchanged at 2.8 cm maximum dimension. There is a slight increase in size of a lytic focus at the superior endplate of L1 increased from 11 to 14 mm. IMPRESSION: 1. Stable metastatic change to the liver as well as spleen. 2. Stable to only slightly progressive bony metastatic change. The above report was generated using voice recognition software. It may contain grammatical, syntax or spelling errors. Electronically signed by: Efren Estevez M.D. 12/28/2016 2:25 PM Dictated Date/Time: 12/28/2016 2:14 PM
== END | disposition home or self-care (01) ==
LOC: C.CTS 13:15
PROVIDERS: ATTEND Internal Medicine Hematology & Oncology
DX: C43.59 Malignant melanoma of other part of trunk (principal); C78.7 Secondary malignant neoplasm of liver and intrahepatic bile duct; C78.89 Secondary malignant neoplasm of other digestive organs; R91.8 Other nonspecific abnormal finding of lung field; C79.51 Secondary malignant neoplasm of bone

== ENCOUNTER → 2017-01-19 | Outpatient (CLI) | payer BC ==
[~2017-01-19] MED LIST changes: -OPTIRAY 320 IV PRN
== END | disposition home or self-care (01) ==
LOC: C.CPL 08:12
PROVIDERS: ATTEND Specialist
DX: C43.9 Malignant melanoma of skin, unspecified (principal)